=== PATIENT | female | born 1975 | race American Indian/Alaskan Native ===

== ENCOUNTER → 2021-03-29 14:38 | Outpatient (CLI) | payer OTHER, SELFPAY ==
--- NOTE | 2021-03-29 | DI.RAD.S_ITS ---
PROCEDURE: XR CERVICAL SPINE 2V OR 3V INDICATIONS: RADICULOPATHY AFFECTING UPPER EXTREMITY TECHNIQUE: 2 view(s) of the cervical spine were acquired. COMPARISON: None. FINDINGS: Bones: No fractures or dislocations to the C7-T1 level. Degenerative endplate changes are noted at C5-6 and C6-7 levels. The lateral masses of C1 appear intact on the odontoid view. No suspicious bony lesions. Soft tissues: No prevertebral soft tissue swelling. IMPRESSION: Degenerative disc disease in lower cervical spine. No acute fracture or dislocation. Dictated by: Andrea Conner M.D. on 03/29/2021 at 16:08 Approved by: Andrea Conner M.D. on 03/29/2021 at 16:08
--- NOTE | 2021-03-29 | DI.RAD.S_ITS ---
PROCEDURE: XR SHOULDER RT MIN 2V INDICATIONS: RIGHT SHOULDER PAIN TECHNIQUE: 3 views of the shoulder were acquired. COMPARISON: None. FINDINGS: Bones: No acute fractures or dislocations. No suspicious bony lesions. Visualized ribs appear intact. Mild to moderate acromioclavicular osteoarthrosis. Soft tissues: Small amorphous calcifications are seen adjacent to the greater tuberosity, consistent with rotator cuff calcific tendinopathy. IMPRESSION: 1. No acute osseous abnormality. 2. Distal rotator cuff calcific tendinopathy. 3. Mild to moderate acromioclavicular osteoarthrosis. Dictated by: Gumaro Adam M.D. on 03/29/2021 at 16:55 Approved by: Gumaro Adam M.D. on 03/29/2021 at 16:56
== END ==
PROVIDERS: Referring Provider Physician Assistant; Visit Provider Physician Assistant
DX: M50.122 Cervical disc disorder at C5-C6 level with radiculopathy (principal); M19.011 Primary osteoarthritis, right shoulder; M25.511 Pain in right shoulder
CPT/HCPCS: 72040; 73030

== ENCOUNTER → 2021-11-29 14:10 | Outpatient (CLI) | payer OTHER, SELFPAY ==
--- NOTE | 2021-11-29 14:12 | DI.US.S_ITS ---
PROCEDURE: US EXTREMELY NONVASC UPPER RT INDICATIONS: RIGHT UPPER ARM MASS TECHNIQUE: Real-time scanning was performed of the right arm , with image documentation. COMPARISON: None. FINDINGS: In the area of palpable abnormality normal soft tissue is identified with no solid or cystic mass or fluid collection. IMPRESSION: Normal soft tissues of the right arm with no solid or cystic mass and no fluid collection. Dictated by: Everette Miranda M.D. on 11/29/2021 at 17:31 Approved by: Everette Miranda M.D. on 11/29/2021 at 17:32
== END ==
PROVIDERS: Referring Provider Physician Assistant; Visit Provider Physician Assistant
DX: M79.89 Other specified soft tissue disorders (principal)
CPT/HCPCS: 76882